=== PATIENT | male | born 1975 | race Caucasian/White ===

== ENCOUNTER 2022-02-20 08:31 | Day surgery (SDC) | payer OTHER ==
[~2022-02-20] VITALS: Ht 180.3 cm; Wt 116.9 kg
[~2022-02-20 08:31] MED LIST: KOMBIGLYZE XR 11 TER PO; OZEMPIC1 MG/0.71 SQ
[2022-02-20] MEDS ORDERED: COZAAR 50MG50 MG/TAB PO (08:39)
[2022-02-20] MEDS ORDERED: CRESTOR40 MG PO (08:39)
[2022-02-20] MEDS ORDERED: TRICOR145 MG PO (08:40)
[2022-02-20] MEDS ORDERED: SYNTHROID 0.10.15 MG PO (08:40)
[2022-02-20 09:09] VITALS: BP 121/79; PULSE 69; TEMP 98
[2022-02-20 10:30] VITALS: BP 104/77; PULSE 80; TEMP 97.3
--- NOTE | 2022-02-20 10:30 | NUR ---
PATIENT ARRIVES TO ROOM 4 VIA CART. ASSIST TO CHAIR X 2. VITAL SIGNS WNL. AT BEDSIDE. DOCTOR AT BEDSIDE WELL. PATIENT REQUESTS COFFEE AND CHOCOLATE CHIP MUFFIN. GLUCOSE IS 97. WILL CONTINUE TO MONITOR.
[2022-02-20 10:45] VITALS: BP 110/77; PULSE 79
--- NOTE | 2022-02-20 10:45 | NUR ---
PATIENT IS ALERT AND ORIENTED. TOLERATED MUFFIN AND COFFEE WELL. AT BEDSIDE. DOCTOR ALSO AT BEDSIDE. VITAL SIGNS WNL. WILL CONTINUE TO MONITOR.
[2022-02-20 11:00] VITALS: BP 113/65; PULSE 83
--- NOTE | 2022-02-20 11:00 | NUR ---
PATIENT IS READY FOR DISCHARGE. VITAL SIGNS WNL. IV REMOVED. DISCHARGE INSTRUCTIONS REVIEWED. WILL DISCHARGE VIA WHEELCHAIR ONCE HE IS DRESSED.
== END 2022-02-20 11:10 | disposition home or self-care (01) ==
LOC: SDCO 08:31
DX: Z12.11 Encounter for screening for malignant neoplasm of colon (principal); Z79.899 Other long term (current) drug therapy; F17.210 Nicotine dependence, cigarettes, uncomplicated
CPT/HCPCS: J2704; J7030